=== PATIENT | male | born 1960 | race Caucasian/White ===

== ENCOUNTER 2021-06-03 10:58 | Emergency (ER) | payer OTHER ==
[~2021-06-03] VITALS: Ht 182.9 cm; Wt 99.8 kg
[2021-06-03] MEDS ORDERED: IV NORMAL SALINE 1000 ML BAG IV ONE (11:15)
[2021-06-03] MEDS ORDERED: DEXAMETHASONE SOD PHOSPHATE 4 MG INJ IV ONE (11:15)
[2021-06-03 11:28] LABS: HEMATOCRIT 39.5 % (36.7-47.1); MEAN CORPUSCULAR HEMOGLOBIN 32.3 uug (23.8-33.4); MEAN CORPUSCULAR VOLUME 95.2 fL (73.0-96.2); PLATELET COUNT (AUTO) 129 K/uL (152-348)
[2021-06-03 11:32] LABS: CREATININE 1.2 mg/dL (0.6-1.3)
[2021-06-03] MEDS ORDERED: DEXAMETHASONE SOD PHOSPHATE 10 MG INJ ONE (11:38)
[2021-06-03 11:44] LABS: BILIRUBIN,DIRECT 0.1 mg/dL (0.0-0.2); BILIRUBIN,TOTAL 0.4 mg/dL (0.2-1.0); TOTAL PROTEIN, SERUM 7.6 g/dL (6.4-8.2)
[2021-06-03] MEDS ORDERED: IV NORMAL SALINE 250 ML IV ONE (13:15)
[2021-06-03] MEDS ORDERED: SWABABLE VALVE TRANSFER SET EA MC ONE (13:15)
[2021-06-03] MEDS ORDERED: IOHEXOL 350 100 ML INFUS..BTL ONE (13:15)
[2021-06-03 15:01] VITALS: BP 137/88
--- NOTE | 2021-06-03 15:01 | NUR ---
IV removed. Catheter intact and site benign. Pressure and 4x4 gauze applied to site. No bleeding noted.
--- NOTE | 2021-06-03 15:01 | NUR ---
Patient given written and verbal discharge instructions. Patient verbalizes understanding of instructions. Patient is ambulatory with steady gait. Refuses offer of jail placement. Patient given list of available shelters in surrounding area.
== END 2021-06-03 15:02 | disposition home or self-care (01) ==
LOC: ER 10:58
DX: E86.0 Dehydration (principal); R42 Dizziness and giddiness; Z59.01 Sheltered homelessness; F10.129 Alcohol abuse with intoxication, unspecified; Y90.5 Blood alcohol level of 100-119 mg/100 ml; Z20.822 Contact with and (suspected) exposure to COVID-19
CPT/HCPCS: 36415; 71045; 80048; 80076; 80307; 80320; 83880; 84145; 84484; 85025; 87040 ×2; 87426; 93005; 96361; 96374; 99285; J1100; 70030-TC; A4663; G0480; J7050; Q9967